=== PATIENT | male | born 1970 | race Caucasian/White ===

== ENCOUNTER 2016-09-30 18:26 | Emergency (ER) | payer OTHER | END 2016-09-30 20:19 | disposition home or self-care (01) | LOC: ER1 18:26 | DX: J40 Bronchitis, not specified as acute or chronic (principal); J06.9 Acute upper respiratory infection, unspecified; Z88.0 Allergy status to penicillin; F17.210 Nicotine dependence, cigarettes, uncomplicated | CPT/HCPCS: 87081; 87880; 99283 ==